=== PATIENT | male | born 1965 | race American Indian/Alaskan Native ===

== ENCOUNTER 2021-06-06 12:48 | Emergency (ER) | payer SELFPAY ==
[2021-06-06 13:16] VITALS: BP 111/78
--- NOTE | 2021-06-06 13:56 | Emergency Department Report ---
ED General Adult HPI - General Chief complaint: Shoulder Injury Stated complaint: SHOULDER Time Seen by Provider: 06/06/21 13:24 Source: patient Mode of arrival: Ambulatory Limitations: No Limitations - History of Present Illness Initial comments: Patient is a 55-year-old male presents emergency with complaints of left shoulder pain that began 2 weeks ago. He states he was not sure if he slept wrong but he has continued to have pain and pain with movement. Patient reports that he has had issues with the shoulder in the past. He states that he pre viously used to do heavy lifting at a previous job. 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 He denies any numbness or weakness. He states that if he holds his arm still he does not have any pain but if he tries to reach his arm above his head that is when the pain exacerbates. Allergy to metoclopramide and Compazine. - Related Data Previous Rx's Medication Instructions Recorded Last Taken Type Meloxicam [Mobic] 7.5 mg PO QDAY #14 tablet 06/06/21 Unknown Rx Menthol/Camphor [[place] 1 applicatio TP BID #18 oint...g. 06/06/21 Unknown Rx Ointment] methOCARBAMOL [Robaxin TAB] 500 mg PO BID PRN #20 tab 06/06/21 Unknown Rx Allergies Allergy/AdvReac Type Severity Reaction Status Date / Time metoclopramide [From Reglan] Allergy Unknown Verified 06/06/21 13:15 prochlorperazine Allergy Unknown Verified 06/06/21 13:15 [From Compazine] ED Review of Systems ROS: Stated complaint: SHOULDER Other details as noted in HPI Comment: All other systems reviewed and negative ED Past Medical Hx - Medications Home Medications: Home Medications Medication Instructions Recorded Confirmed Last Taken Type Meloxicam [Mobic] 7.5 mg PO QDAY #14 tablet 06/06/21 Unknown Rx Menthol/Camphor [[place] 1 applicatio TP BID #18 oint...g. 06/06/21 Unknown Rx Ointment] methOCARBAMOL [Robaxin TAB] 500 mg PO BID PRN #20 tab 06/06/21 Unknown Rx ED Physical Exam - General Limitations: No Limitations General appearance: alert, in no apparent distress - Head Head exam: Present: atraumatic, normocephalic - Eye Eye exam: Present: normal appearance - ENT ENT exam: Present: mucous membranes moist - Respiratory Respiratory exam: Absent: respiratory distress, accessory muscle use - Extremities Exam Extremities exam: Present: other (mild ttp to the left deltoid, pt experiences pain when lifting the arm greater than 90 degrees, no sulcus sign, clavicles are equal, no clavicular ttp, no deformity, neurovascularly intact) - Neurological Exam Neurological exam: Present: alert, oriented X3 - Psychiatric Psychiatric exam: Present: normal affect, normal mood - Skin Skin exam: Present: warm, dry, intact ED Course Vital Signs 06/06/21 13:15 Temperature 98.5 F Pulse Rate 92 H Respiratory 16 Rate Blood Pressure 111/78 [Left] O2 Sat by Pulse 100 Oximetry ED Medical Decision Making - Medical Decision Making Patient is a 55-year-old male presents emergency with complaints of left shoulder pain that began 2 weeks ago. He states he was not sure if he slept wrong but he has continued to have pain and pain with movement. Patient reports that he has had issues with the shoulder in the past. He states that he previously used to do heavy lifting at a previous job. 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 He denies any numbness or weakness. He states that if he holds his arm still he does not have any pain but if he tries to reach his arm above his head that is when the pain exacerbates. Allergy to metoclopramide and Compazine. vitals are normal. on e xam: mild ttp to the left deltoid, pt experiences pain when lifting the arm greater than 90 degrees, no sulcus sign, clavicles are equal, no clavicular ttp, no deformity, neurovascularly intact. symptoms could be related to muscle strain vs rotator cuff tendinitis. pt has had no acute trauma, no clinical signs of fracture or dislocation. pt given prescription for medication. advised pt Please use medication as prescribed. Follow-up with orthopedic doctor. Return to emergency room for any new or worsening symptoms. Critical care attestation.: If time is entered above; I have spent that time in minutes in the direct care of this critically ill patient, excluding procedure time. ED Disposition Clinical Impression: Left shoulder pain Qualifiers: Chronicity: acute Qualified Code(s): M25.512 - Pain in left shoulder Disposition: 01 HOME / SELF CARE / HOMELESS Is pt being admited?: No Does the pt Need Aspirin: No Condition: Stable Instructions: Shoulder Pain, [id number] Additional Instructions: Please use medication as prescribed. Follow-up with orthopedic doctor. Return to emergency room for any new or worsening symptoms. Prescriptions: Meloxicam [Mobic] 7.5 mg PO QDAY #14 tablet methOCARBAMOL [Robaxin TAB] 500 mg PO BID PRN #20 tab PRN Reason: muscle spasm/pain Menthol/Camphor [[place] Ointment] 1 applicatio TP BID #18 oint...g. Referrals: [facility] [Provider Group] - 2-3 Days CRISTHIAN HATCH MD [Staff Physician] - 2-3 Days Time of Disposition: 13:57 Print Language: IVORIAN
== END 2021-06-06 14:23 | disposition home or self-care (01) ==
LOC: ED 12:48
DX: M25.512 Pain in left shoulder (principal)
CPT/HCPCS: 99282

== ENCOUNTER 2021-09-12 13:28 | Emergency (ER) | payer SELFPAY ==
[2021-09-12 15:01] VITALS: BP 142/78
--- NOTE | 2021-09-12 15:01 | Emergency Department Report ---
Abscess Boil HPI - HPI Chief Complaint: Skin/Abscess/Foreign Body Stated Complaint: PAINFUL LUMP ON COCCYX Duration: >1 Week Location: Other History: Yes Pain, Yes Previous History, No Fever, No Purulent Drainage, No Numb ness, No Foreign Body, No Insect Bite HPI: 55-year-old male presents to the ED with pea-sized abscess noted between the buttocks x 1 week . Patient states that has has previous abscess to the area in the past. Denies any fever chills nausea vomiting. Patient states pain is worse at night when attempting to sleep. Patient is alert and oriented x3. No acute distress noted. No ill appearance noted/ Home Medications: Previous Rx's Medication Instructions Recorded Last Taken Type Meloxicam [Mobic] 7.5 mg PO QDAY #14 tablet 06/06/21 Unknown Rx Menthol/Camphor [[place] 1 applicatio TP BID #18 oint...g. 06/06/21 Unknown Rx Ointment] methOCARBAMOL [Robaxin TAB] 500 mg PO BID PRN #20 tab 06/06/21 Unknown Rx Sulfamethoxazole/Trimethoprim 1 each PO BID 10 Days #20 tab 09/12/21 Unknown Rx [Bactrim DS TAB] cephALEXin [Keflex] 500 mg PO Q12HR 10 Days #20 cap 09/12/21 Unknown Rx Allergies/Adverse Reactions: Allergies Allergy/AdvReac Type Severity Reaction Status Date / Time metoclopramide [From Reglan] Allergy Unknown Verified 09/12/21 14:00 prochlorperazine Allergy Hives Verified 09/12/21 14:00 [From Compazine] ED Review of Systems ROS: Stated complaint: PAINFUL LUMP ON COCCYX Other details as noted in HPI Constitutional: denies: chills, fever Eyes: denies: eye pain, eye discharge, vision change ENT: denies: ear pain, throat pain Respiratory: denies: cough, shortness of breath, wheezing Cardiovascular: denies: chest pain, palpitations Endocrine: no symptoms reported Gastrointestinal: denies: abdominal pain, nausea, diarrhea Genitourinary: denies: urgency, dysuria Musculoskeletal: denies: back pain, joint swelling, arthralgia Skin: other (Lesion). denies: rash, lesions Neurological: denies: headache, weakness, paresthesias Psychiatric: denies: anxiety, depression Hematological/Lymphatic: denies: easy bleeding, easy bruising ED Past Medical Hx - Past Medical History Previous Medical History?: Yes Additional medical history: depression - Medications Home Medications: Home Medications Medication Instructions Recorded Confirmed Last Taken Type Meloxicam [Mobic] 7.5 mg PO QDAY #14 tablet 06/06/21 Unknown Rx Menthol/Camphor [[place] 1 applicatio TP BID #18 oint...g. 06/06/21 Unknown Rx Ointment] methOCARBAMOL [Robaxin TAB] 500 mg PO BID PRN #20 tab 06/06/21 Unknown Rx Sulfamethoxazole/Trimethoprim 1 each PO BID 10 Days #20 tab 09/12/21 Unknown Rx [Bactrim DS TAB] cephALEXin [Keflex] 500 mg PO Q12HR 10 Days #20 cap 09/12/21 Unknown Rx ED Abscess Boil Physical Exam - Exam General: Vital signs noted. No distress. Alert and acting appropriately. Size: 1 cm Exam: Yes Tenderness, Yes Surrounding Cellulites/Erythema, No Fluctuance, No Lymphangitis, No Crepitation, No Heart Murmur, No Normal Neurologic Exam, No Normal Circulation Critical care attestation.: If time is entered above; I have spent that time in minutes in the direct care of this critically ill patient, excluding procedure time. ED Medical Decision Making - Medical Decision Making 55-year-old male presents to the ED with pea-sized abscess noted between the buttocks x 1 week . Patient states that has has previous abscess to the area in the past. Denies any fever chills nausea vomiting. Patient states pain is worse at night when attempting to sleep. Patient is alert and oriented x3. No acute distress noted. No ill appearance noted. No I&D No fluctuant noted. Examination is unremarkable. Rechecked the patient is resting quietly quietly and comfortable and feeling better. I discussed the results of diagnostic study, my clinical impression and the plan for further treatment with the patient. Patient agrees with plan and discharge at this present time. All question addressed. I have given the patient instruction regarding a diagnosis ,expectation ,follow- up and return precaution. I explained to the patient that emergent condition may arise and to return to the ED for new worsen and any new persisting condition. I have explained the importance of following up with the primary care physician or referral physician listed below has instructed. The patient verbalized understanding of discharge instruction. ED Disposition Clinical Impression: Abscess Disposition: 01 HOME / SELF CARE / HOMELESS Is pt being admited?: No Does the pt Need Aspirin: No Condition: Stable Instructions: Skin Abscess, [id number] Additional Instructions: Medication has needed Return to ED for any worsening symptom Prescriptions: Sulfamethoxazole/Trimethoprim [Bactrim DS TAB] 1 each PO BID 10 Days #20 tab cephALEXin [Keflex] 500 mg PO Q12HR 10 Days #20 cap Referrals: PRIMARY CARE [Primary Care Provider] - 3-5 Days [facility] [Provider Group] - 3-5 Days Forms: Work/School Release Form(ED) Time of Disposition: 15:04
== END 2021-09-12 15:25 | disposition home or self-care (01) ==
LOC: ED 13:28
DX: L02.212 Cutaneous abscess of back [any part, except buttock and flank] (principal); F32.9 Major depressive disorder, single episode, unspecified; Z88.8 Allergy status to other drugs, medicaments and biological substances; Z79.899 Other long term (current) drug therapy
CPT/HCPCS: 99282

== ENCOUNTER 2021-09-23 10:51 | Emergency (ER) | payer OTHER ==
[2021-09-23] MEDS ORDERED: LORazepam 1 MG TAB PO STA (11:13)
[2021-09-23] MEDS ORDERED: levETIRAcetam 500 MG TAB PO STA (11:13)
--- NOTE | 2021-09-23 13:09 | Emergency Department Report ---
ED General Adult HPI - General Chief complaint: Dizziness Stated complaint: LIGHTHEADED Time Seen by Provider: 09/23/21 11:06 Source: patient, EMS Mode of arrival: Stretcher Limitations: No Limitations - History of Present Illness Initial comments: Chief complaint: "I felt like I had a seizure." HPI: This is a 56-year-old male with history of anxiety depression previous seizure who presents with anxiety jittery feeling. He was in his normal state of health before he took his medication. He thinks that he may have taken double doses of his medication. He was started on a new regimen of medication which include Wellbutrin Seroquel hydroxyzine. He now feels dizzy and jittery. He denies something for anxiety. He states that the hydroxyzine has not worked. He denies homicidal or suicidal ideation. -: This morning Severity scale (0 -10): 0 Consistency: constant Improves with: none Worsens with: none Associated Symptoms: other (feels jittery lightheadedness feels nervous anxious) - Related Data Home Medications Medication Instructions Recorded Confirmed Last Taken Quetiapine Fumarate [SEROquel] 50 mg PO QAM 09/23/21 09/23/21 09/20/21 50 mg Wellbutrin 100 mg PO QAM 09/23/21 09/23/21 09/20/21 100 mg cephALEXin [Keflex] 500 mg PO QAM 09/23/21 09/23/21 09/20/21 500 mg hydrOXYzine HCL [Atarax] 25 mg PO Q6HR PRN 09/23/21 09/23/21 09/23/21 25 mg Previous Rx's Medication Instructions Recorded Last Taken Type Menthol/Camphor [[place] 1 applicatio TP BID #18 oint...g. 06/06/21 Unknown Rx Ointment] methOCARBAMOL [Robaxin TAB] 500 mg PO BID PRN #20 tab 06/06/21 Unknown Rx Sulfamethoxazole/Trimethoprim 1 each PO BID 10 Days #20 tab 09/12/21 Unknown Rx [Bactrim DS TAB] cephALEXin [Keflex] 500 mg PO Q12HR 10 Days #20 cap 09/12/21 Unknown Rx Allergies Allergy/AdvReac Type Severity Reaction Status Date / Time metoclopramide [From Reglan] Allergy Unknown Verified 09/23/21 10:54 prochlorperazine Allergy Hives Verified 09/23/21 10:54 [From Compazine] aspirin AdvReac Headache Verified 09/23/21 11:16 ED Review of Systems ROS: Stated complaint: LIGHTHEADED Other details as noted in HPI Comment: All other systems reviewed and negative Constitutional: denies: chills, fever, malaise Respiratory: denies: cough, shortness of breath Cardiovascular: denies: chest pain Gastrointestinal: denies: abdominal pain, nausea, vomiting ED Past Medical Hx - Past Medical History Previous Medical History?: Yes Hx Seizures: Yes Additional medical history: depression - Surgical History Past Surgical History?: Yes Additional Surgical History: Stomach surgery for bleeding ulcers - Social History Smoking Status: Never Smoker Substance Use Type: None - Medications Home Medications: Home Medications Medication Instructions Recorded Confirmed Last Taken Type Menthol/Camphor [[place] 1 applicatio TP BID #18 oint...g. 06/06/21 09/23/21 Unknown Rx Ointment] methOCARBAMOL [Robaxin TAB] 500 mg PO BID PRN #20 tab 06/06/21 09/23/21 Unknown Rx Sulfamethoxazole/Trimethoprim 1 each PO BID 10 Days #20 tab 09/12/21 09/23/21 Unknown Rx [Bactrim DS TAB] cephALEXin [Keflex] 500 mg PO Q12HR 10 Days #20 cap 09/12/21 09/23/21 Unknown Rx Quetiapine Fumarate [SEROquel] 50 mg PO QAM 09/23/21 09/23/21 09/20/21 History 50 mg Wellbutrin 100 mg PO QAM 09/23/21 09/23/21 09/20/21 History 100 mg cephALEXin [Keflex] 500 mg PO QAM 09/23/21 09/23/21 09/20/21 History 500 mg hydrOXYzine HCL [Atarax] 25 mg PO Q6HR PRN 09/23/21 09/23/21 09/23/21 History 25 mg ED Physical Exam - General Limitations: No Limitations General appearance: alert, in no apparent distress - Head Head exam: Present: atraumatic, normocephalic - Eye Eye exam: Present: normal appearance - ENT ENT exam: Present: mucous membranes moist - Neck Neck exam: Present: normal inspection, full ROM - Respiratory Respiratory exam: Present: normal lung sounds bilaterally. Absent: respiratory distress, wheezes, rales, rhonchi - Cardiovascular Cardiovascular Exam: Present: regular rate, normal rhythm, normal heart sounds. Absent: systolic murmur, diastolic murmur, rubs, gallop - GI/Abdominal GI/Abdominal exam: Present: soft, normal bowel sounds. Absent: distended, tenderness, guarding, rebound - Rectal Rectal exam: Present: deferred - Extremities Exam Extremities exam: Present: normal inspection - Back Exam Back exam: Present: normal inspection - Neurological Exam Neurological exam: Present: alert, oriented X3 - Psychiatric Psychiatric exam: Present: normal affect, normal mood - Skin Skin exam: Present: warm, dry, intact, normal color. Absent: rash ED Course Vital Signs 09/23/21 09/23/21 09/23/21 10:52 11:12 11:14 Temperature 97.8 F 98.1 F 98.1 F Pulse Rate 96 H 90 90 Respiratory 20 18 18 Rate Blood Pressure 136/88 Blood Pressure 116/78 136/88 [Left] O2 Sat by Pulse 96 100 100 Oximetry ED Medical Decision Making - Medical Decision Making 1. Adverse reaction to medication: Patient denies intentional overdose 2. anxiety reaction patient received p.o. lorazepam in emergency department. 3. Patient presumed that he had seizure, his last seizure was 8 years ago once he stopped using alcohol. Patient received p.o. Keppra load. With further history taking, he revealed that his symptoms were due to unintentional overdose. Critical care attestation.: If time is entered above; I have spent that time in minutes in the direct care of this critically ill patient, excluding procedure time. ED Disposition Clinical Impression: Medication adverse effect Disposition: 01 HOME / SELF CARE / HOMELESS Is pt being admited?: No Does the pt Need Aspirin: No Condition: Stable Instructions: Accidental Drug Poisoning, Adult Referrals: MATTHEW CHANG MD [Primary Care Provider] - 3-5 Days
[2021-09-23 13:51] VITALS: BP 128/83
== END 2021-09-23 13:51 | disposition home or self-care (01) ==
LOC: ED 10:51
DX: F41.9 Anxiety disorder, unspecified (principal); T42.4X5A Adverse effect of benzodiazepines, initial encounter; R56.9 Unspecified convulsions; F32.9 Major depressive disorder, single episode, unspecified; Z88.6 Allergy status to analgesic agent; Z88.8 Allergy status to other drugs, medicaments and biological substances; Z79.899 Other long term (current) drug therapy; Y92.89 Other specified places as the place of occurrence of the external cause
CPT/HCPCS: 99283